=== PATIENT | female | born 1990 | race Caucasian/White ===

== ENCOUNTER 2017-04-09 18:20 | Emergency (ER) | payer MEDICAID ==
[~2017-04-09] VITALS: Ht 154.9 cm; Wt 56.9 kg
[2017-04-09 22:18] VITALS: BP 117/86
== END 2017-04-09 22:18 | disposition home or self-care (01) ==
LOC: ED 18:20
DX: L98.8 Other specified disorders of the skin and subcutaneous tissue (principal)